=== PATIENT | female | born 1995 | race Caucasian/White ===

== ENCOUNTER 2025-07-09 22:04 | Emergency (ER) | payer OTHER ==
[~2025-07-09] VITALS: Ht 170.2 cm; Wt 52.2 kg
[2025-07-10] MEDS ORDERED: CEFTRIAXONE 500 MG VIAL ONE (00:14)
[2025-07-10] MEDS ORDERED: CEPHALEXIN MONOHYDRATE 500 MG CAPSULE PO ONE (00:14)
[2025-07-10] MEDS ORDERED: METR-147 PO (00:15)
[2025-07-10] MEDS ORDERED: METRONIDAZOLE 500 MG TABLET ONE (00:15)
[2025-07-10] MEDS ORDERED: CEPH500C2 PO (00:15)
[2025-07-10] MEDS ORDERED: LIDOCAINE /MPF 1% VIAL 5 ML VIAL ONE (00:17)
[2025-07-10] MEDS: CEFTRIAXONE 500 MG VIAL IM ONE (00:25)
[2025-07-10] MEDS: CEPHALEXIN MONOHYDRATE 500 MG CAPSULE PO ONE (00:26)
[2025-07-10] MEDS: METRONIDAZOLE 500 MG TABLET PO ONE (00:26)
[2025-07-10 00:27] VITALS: BP 126/87; TEMP 98; O2SAT 98
[2025-07-10 00:37] LABS: PREGNANCY TEST URINE QUAL NEGATIVE (NEGATIVE)
== END 2025-07-10 00:28 | disposition left against medical advice (07) ==
LOC: ER 22:09
DX: A54.24 Gonococcal female pelvic inflammatory disease (principal); N39.0 Urinary tract infection, site not specified; Z91.048 Other nonmedicinal substance allergy status
CPT/HCPCS: 99283; 84703; J0696; J3490